=== PATIENT | female | born 1960 | race Caucasian/White ===

== ENCOUNTER → 2016-10-04 | Outpatient (CLI) | payer OTHER ==
[~2016-10-04] MED LIST: ACETAMINOPHEN PO; DESYREL100 MG PO; MIDRIN CAPSULE1 CAP PO; PHENERGAN PO; PRILOSEC PO; PROZAC; ZOLOFT PO
--- NOTE | ~2016-10-04 | MY11 ---
[facility] A Service of [facility] RADIOLOGY TEXT RESULTS PATIENT: GEMA MÉNDEZ LOCATION: [facility] : 58 UNIT #: [id number] AGE: [address]: Marta García MD SEX: F ORDER DR: [id number] [address] [facility]. [place], [place] [address] [id number] O MR#: [id number] Acc #: [id number] NAME: GEMA MÉNDEZ. : 1960 SEX: F STUDY DATE/TIME: 10/04/2016 11:50 UNIT: [facility] ROOM: STUDY DESCRIPTION: MY Mammogram Screening [facility] [place] Attending Physician: Marta García M.D. Referring Physician: Marta García M.D. Ordering Physician: Marta García M.D. Primary Care Physician: Marta García M.D. MEDICAL IMAGING REPORT This report is preliminary unless electronic signature is present EXAM Digital screening mammogram, 10/04/2016, [facility]. HISTORY 56-year-old woman previous augmentation 2014. No risk elevation. Annual screen. COMPARISON Mammograms date to 03/25/2005 with most recent 09/18/2015. TECHNIQUE Digital imaging of each breast was completed utilizing conventional projections and standard Wen views. Review includes FDA-approved CAD device. FINDINGS Bilateral retropectoral silicone implants are stable. Breast parenchyma bilaterally is dense with combination of fibroglandular opacities and parenchymal nodularity. Bilateral subareolar duct prominence is also present. Occasional benign calcification noted in the left breast. I see no suspicious mass characteristics. There are no interval occurring microcalcifications and no suspicious architectural deformity. IMPRESSION Stable benign mammogram. Stable retropectoral silicone implants. Annual screening recommended. Patients over the age of 40 are entered into a reminder system with target due date for the next mammogram. A result letter will also be sent to the patient. BIRADS: 2 Benign finding. [facility] A Service of [facility] & [facility] RADIOLOGY TEXT RESULTS PATIENT: GEMA MÉNDEZ LOCATION: [facility] : 58 UNIT #: [id number] AGE: [address]: Marta García MD SEX: F ORDER DR: Dictated by... Dipak Banks M.D. THIS IS AN ELECTRONICALLY VERIFIED REPORT Dipak Banks M.D. at 10/04/2016 3:38 PM JAMES/jeison TD: 10/04/2016 13:49 JOB #: [id number] MEDICAL IMAGING REPORT Page 1 of 1 COPY
== END | disposition home or self-care (01) ==
LOC: CWCC 11:10
DX: Z12.31 Encounter for screening mammogram for malignant neoplasm of breast (principal); Z98.82 Breast implant status
CPT/HCPCS: G0202

== ENCOUNTER → 2016-11-29 | Outpatient (CLI) | payer OTHER ==
[2016-11-29 13:01] LABS: ALBUMIN SERUM 4.4 g/dL (3.5-5.0); BILIRUBIN, DIRECT 0.1 mg/dL (0.0-0.2); BILIRUBIN,INDIRECT 0.8 mg/dL (0.0-0.9); BILIRUBIN,TOTAL 0.9 mg/dL (0.2-2.0); PROTEIN TOTAL SERUM 7.2 g/dL (6.0-8.3)
== END | disposition home or self-care (01) ==
LOC: CLAB 11:44
PROVIDERS: Internal Medicine Gastroenterology
DX: B37.81 Candidal esophagitis (principal)
CPT/HCPCS: 36415; 80076